=== PATIENT | female | born 1980 | race Caucasian/White ===

== ENCOUNTER 2016-05-21 10:59 | Emergency (ER) | payer OTHER | END 2016-05-21 12:10 | disposition home or self-care (01) | LOC: ER1 10:59 | DX: S46.911A Strain of unspecified muscle, fascia and tendon at shoulder and upper arm level, right arm, initial encounter (principal); M62.838 Other muscle spasm; X58.XXXA Exposure to other specified factors, initial encounter | CPT/HCPCS: 71020; 73030; 99283 ==

== ENCOUNTER 2020-12-23 04:40 | Emergency (ER) | payer OTHER ==
[2020-12-23 05:23] LABS: HEMOGLOBIN 12.5 gm/dl (12.3-15.3); RED BLOOD COUNT 4.44 M/UL (4.00-5.10); WHITE BLOOD COUNT 8.6 K/UL (4.5-11.0)
[2020-12-23 05:54] LABS: BUN/CREATININE RATIO 15 (0-10)
== END 2020-12-23 06:38 | disposition home or self-care (01) ==
LOC: ER1 04:40
PROVIDERS: Family Medicine
DX: R00.2 Palpitations (principal)
CPT/HCPCS: 80053; 82550; 82553; 83874; 84439; 84443; 84484; 85025; 93005; 99285